=== PATIENT | female | born 1955 | race Caucasian/White ===

== ENCOUNTER 2017-04-17 07:53 | Emergency (ER) | payer OTHER ==
[~2017-04-17] VITALS: Ht 149.9 cm; Wt 45.5 kg
[~2017-04-17 07:53] MED LIST: ACET-2744 PO; CEPH-582 PO; LACT30L PO; LISI-660 PO
[2017-04-17] MEDS ORDERED: ONDA4 PO (08:00)
[2017-04-17] MEDS ORDERED: HYDR2 PO (08:00)
[2017-04-17] MEDS ORDERED: ONDANSETRON HCL 4 MG/2 ML VIAL IVP ONE (08:15)
[2017-04-17] MEDS ORDERED: HYDROmorphone 2 MG/ML SYRINGE IVP ONE ×2 (08:15→15:45)
[2017-04-17] MEDS ORDERED: SODIUM CHLORIDE 0.9% 1,000 ML IV ONE (08:45)
[2017-04-17 08:47] LABS: HEMATOCRIT 29.6 % (36-46); HEMOGLOBIN 9.4 g/dL (12.0-16.0); MEAN CORPUSCULAR HEMOGLOBIN 23.2 pg (26.0-34.0); MEAN CORPUSCULAR HGB CONC 31.7 G/dL (31.0-37.0); MEAN CORPUSCULAR VOLUME 73 fL (80-100); PLATELET COUNT (AUTO) 569 K/uL (150-450); RED BLOOD CELL COUNT(AUTO) 4.03 MIL/uL (4.00-5.20); RED CELL DISTRIBUTION WIDTH 26.8 % (11.5-14.5); WHITE BLOOD COUNT (AUTO) 4.4 K/uL (4.5-11.0)
[2017-04-17 08:48] LABS: ANION GAP 10 mmol/L (8-16); CALCIUM, TOTAL 8.5 mg/dL (8.8-10.5); CARBON DIOXIDE 25 mmol/L (22-29); CHLORIDE 99 mmol/L (98-107); CREATININE 0.58 mg/dL (0.60-1.30); GLOMERULAR FILTR. RATE CALC > 60 mL/min (>60); POTASSIUM 3.7 mmol/L (3.5-5.1); SODIUM SERUM 134 mmol/L (136-145); UREA NITROGEN, BLOOD 15 mg/dL (7-18)
[2017-04-17 08:54] LABS: ALANINE AMINOTRANSFERASE 14 U/L (12-78); ALBUMIN 2.3 g/dL (3.4-5.0); ASPARTATE AMINOTRANSFERASE 16 U/L (15-37); BILIRUBIN,TOTAL 0.6 mg/dL (0.1-1.0); TOTAL PROTEIN, SERUM 7.1 g/dL (6.4-8.2)
[2017-04-17 09:25] LABS: BAND NEUTROPHILS % (MANUAL) 43 % (1-5); LYMPHOCYTES % (MANUAL) 21 % (22-44); TOTAL CELLS COUNTED 100
[2017-04-17 09:26] LABS: RBC MORPHOLOGY COMMENT ABNORMAL RBC MORPH
[2017-04-17] MEDS ORDERED: SODIUM BICARBONATE 50 MEQ/50 ML VIAL ONE (11:47)
[2017-04-17] MEDS ORDERED: LIDOCAINE HCL/PF 1% 30 ML VIAL ONE (11:47)
[2017-04-17 12:20] VITALS: BP 150/91
[2017-04-17] MEDS ORDERED: IOHEXOL 300 MG/ML 50 ML VIAL ONE ×2 (12:27→14:48)
[2017-04-17] MEDS ORDERED: HEPARIN SODIUM 1000 UNITS/NS 500 ML ONE (12:42)
[2017-04-17] MEDS ORDERED: FentaNYL CITRATE-PF 100 MCG/2 ML VIAL ONE (12:44)
[2017-04-17] MEDS ORDERED: ONDANSETRON HCL 4 MG/2 ML VIAL ONE (12:44)
[2017-04-17] MEDS ORDERED: MIDAZOLAM HCL 2 MG/2 ML VIAL ONE (12:44)
[2017-04-17] MEDS ORDERED: VERAPAMIL HCL 2.5 MG/ML 2 ML VIAL ONE (13:03)
[2017-04-17] MEDS ORDERED: NITROGLYCERIN 50 MG/D5% WATER 250 ML ONE (13:03)
[2017-04-17] MEDS ORDERED: HEPARIN SODIUM,PORCINE 5,000 UNITS/ML VIAL IVP ONE (13:30)
[2017-04-17] MEDS ORDERED: MIDAZOLAM HCL 2 MG/2 ML VIAL IVP ONE ×2 (13:30→15:00)
[2017-04-17] MEDS ORDERED: FentaNYL CITRATE-PF 100 MCG/2 ML VIAL IVP ONE ×2 (13:30→15:00)
[2017-04-17] MEDS ORDERED: SODIUM CHLORIDE 0.9% 500 ML IV ONE (13:40)
[2017-04-17] MEDS ORDERED: IOHEXOL 300 MG/ML 50 ML VIAL IARTER ONE (13:45)
[2017-04-17] MEDS ORDERED: NITROGLYCERIN/D5W 50 MG/250 ML IV BOTTLE IARTER ONE (13:45)
[2017-04-17] MEDS ORDERED: LIDOCAINE 1% 30 ML/SOD BICARB 8.4% 4 ML SQ ONE (13:45)
[2017-04-17] MEDS ORDERED: VERAPAMIL HCL 2.5 MG/ML 2 ML VIAL IARTER ONE (13:45)
[2017-04-17] MEDS ORDERED: HYDROmorphone 2 MG/ML SYRINGE ONE (15:27)
[2017-04-17 15:50] VITALS: BP 155/80
[2017-04-17] MEDS ORDERED: HYDROmorphone 2 MG/ML SYRINGE IM ONE (16:30)
[2017-04-17 19:10] VITALS: BP 114/82
[2017-04-17] MEDS ORDERED: ONDANSETRON HCL 4 MG TABLET PO ONE ×2 (19:15→20:00)
== END 2017-04-17 19:50 | disposition home or self-care (01) ==
LOC: EMS 07:54
DX: R10.30 Lower abdominal pain, unspecified (principal); G89.29 Other chronic pain; R11.0 Nausea; D64.9 Anemia, unspecified; N93.9 Abnormal uterine and vaginal bleeding, unspecified; C80.1 Malignant (primary) neoplasm, unspecified; I10 Essential (primary) hypertension; Z88.5 Allergy status to narcotic agent
CPT/HCPCS: 36245; 36415; 37243; 76937; 80053; 85025; 96374; 96375; 99285; C1769; J0690; J1170; J1644; J2250; J2405; J3010; J3490 ×4; Q0162; Q9967; 96361